=== PATIENT | female | born 1950 | race Caucasian/White ===

== ENCOUNTER 2020-11-13 05:53 | Day surgery (SDC) | payer OTHER, BC ==
[2020-11-09 13:10] VITALS: BMI 27.9
[2020-11-13] MEDS ORDERED: LIDOCAINE HCL/PF 2% SDV 5ML VIAL ONE ×2 (07:23→07:43)
[2020-11-13] MEDS ORDERED: MIDAZOLAM HCL 2 MG/2 ML SINGLE DOSE VIAL ONE (07:32)
[2020-11-13] MEDS ORDERED: PROPOFOL 20 ML ONE (07:32)
[2020-11-13] MEDS ORDERED: ceFAZolin SODIUM 1 GM VIAL ONE (07:33)
[2020-11-13] MEDS ORDERED: LIDOCAINE HCL 2% (50ML VIAL) INF ONE (07:43)
[2020-11-13] MEDS ORDERED: BUPIVACAINE HCL/PF 0.5% (5 MG/ML) 30 ML VIAL IJ ONE (07:43)
[2020-11-13] MEDS ORDERED: KETOROLAC TROMETHAMINE 30 MG/1 ML VIAL ONE (07:49)
[2020-11-13 11:11] VITALS: TEMP 97.9
[2020-11-13 11:18] VITALS: BP 118/74; PULSE 66
== END 2020-11-13 10:15 | disposition home or self-care (01) ==
LOC: FASU 05:53
PROVIDERS: ATTEND Podiatrist
PROC: 0QBN0ZZ Excision of Right Metatarsal, Open Approach (ICD-10-PCS; principal; 2020-11-13 07:52)
DX: M20.21 Hallux rigidus, right foot (principal)
CPT/HCPCS: 73630-TC-RT-FY; 88304-TC; 88311-TC